=== PATIENT | male | born 1935 | race Caucasian/White ===

== ENCOUNTER → 2017-06-24 11:04 | Outpatient (CLI) | payer MEDICARE, OTHER, SELFPAY ==
[2017-06-24 11:59] LABS: Add Manual Diff / Slide Review NO; Basophils Percent Auto 1.2 % (0-2); Eosinophils Percent Auto 2.5 % (2-4); Hematocrit 39.8 % (41-53); Hemoglobin 13.6 g/dL (13.5-17.5); Lymphocytes Percent Auto 20.5 % (25-40); Mean Corpuscular HGB Conc 34.1 % (30-36); Mean Corpuscular Volume 93.9 fL (80-100); Monocytes Percent Auto 13.2 % (3-14); Neutrophils Absolute Auto 3700 /uL (3000-5900); Neutrophils Percent Auto 62.6 % (50-75); Platelet Count 150 X10^3/uL (150-400); Red Blood Cell Count 4.24 X10^6/uL (4.5-5.9); Red Cell Distribution Width 13.9 % (11.6-14.8); White Blood Cell Count 5.9 X10^3/uL (4.5-11.0)
[2017-06-24 12:11] LABS: Alanine Aminotransferase 45 IU/L (21-72); Albumin 4.2 g/dL (3.5-5.0); Albumin Globulin Ratio 1.2 (1.0-2.8); Alkaline Phosphatase 53 U/L (38-126); Aspartate Aminotransferase 32 IU/L (17-59); BUN Creatinine Ratio 11.7 (6-22); Bilirubin Total 0.8 mg/dL (0.2-1.3); Estimated Glomerular Filt Rate 58.1 mL/min (>60); Globulin 3.4 g/dL (1.7-4.1); Glucose 113 mg/dL (80-110); HEMOLYSIS < 15 (0-50); Potassium 3.9 mmol/L (3.4-5.1); Sodium 139 mmol/L (137-145); Total Protein 7.6 g/dL (6.3-8.2)
[2017-06-25 14:43] LABS: Free Kappa Light Chain 42.3; Free Kappa/ Lambda Ratio 0.94; Free Lambda 44.8
== END ==
PROVIDERS: Internal Medicine Hematology & Oncology; PCP Internal Medicine; Visit Provider Specialist
DX: C90.00 Multiple myeloma not having achieved remission (principal)
CPT/HCPCS: 36415; 80053; 83883; 85025

== ENCOUNTER → 2017-08-05 13:53 | Outpatient (CLI) | payer MEDICARE, OTHER, SELFPAY ==
[2017-07-01 14:59] VITALS: TEMP 36.7
[2017-08-05 14:09] LABS: Add Manual Diff / Slide Review NO; Basophils Percent Auto 1.1 % (0-2); Eosinophils Percent Auto 1.9 % (2-4); Hematocrit 36.9 % (41-53); Hemoglobin 12.6 g/dL (13.5-17.5); Lymphocytes Percent Auto 36.2 % (25-40); Mean Corpuscular HGB Conc 34.1 % (30-36); Mean Corpuscular Hemoglobin 32.6 PG (26-34); Mean Corpuscular Volume 95.5 fL (80-100); Monocytes Percent Auto 11.7 % (3-14); Neutrophils Absolute Auto 1900 /uL (3000-5900); Neutrophils Percent Auto 49.1 % (50-75); Platelet Count 149 X10^3/uL (150-400); Red Blood Cell Count 3.86 X10^6/uL (4.5-5.9); Red Cell Distribution Width 14.6 % (11.6-14.8); White Blood Cell Count 3.8 X10^3/uL (4.5-11.0)
[2017-08-05 14:20] LABS: Alanine Aminotransferase 43 IU/L (21-72); Albumin 3.9 g/dL (3.5-5.0); Albumin Globulin Ratio 1.3 (1.0-2.8); Alkaline Phosphatase 49 U/L (38-126); Aspartate Aminotransferase 24 IU/L (17-59); BUN Creatinine Ratio 14.2 (6-22); Bilirubin Total 0.8 mg/dL (0.2-1.3); Blood Urea Nitrogen 17 mg/dL (9-20); Calcium 8.8 mg/dL (8.4-10.2); Carbon Dioxide 25 mmol/L (22-32); Chloride 107 mmol/L (98-107); Estimated Glomerular Filt Rate 58.1 mL/min (>60); Globulin 3.1 g/dL (1.7-4.1); Glucose 136 mg/dL (80-110); HEMOLYSIS < 15 (0-50); Potassium 3.9 mmol/L (3.4-5.1); Sodium 142 mmol/L (137-145)
[2017-08-07 16:19] LABS: Free Kappa Light Chain 33.1 mg/L (3.3-19.4); Free Lambda 36.8 mg/L (5.7-26.3)
== END ==
PROVIDERS: PCP Internal Medicine; Visit Provider Nurse Practitioner Gerontology
DX: C90.00 Multiple myeloma not having achieved remission (principal)
CPT/HCPCS: 36415; 80053; 83883; 85025

== ENCOUNTER → 2017-09-16 11:13 | Outpatient (CLI) | payer MEDICARE, OTHER, SELFPAY ==
[2017-09-16 11:47] LABS: Add Manual Diff / Slide Review NO; Basophils Percent Auto 1.2 % (0-2); Hematocrit 37.3 % (41-53); Hemoglobin 12.9 g/dL (13.5-17.5); Lymphocytes Percent Auto 24.9 % (25-40); Mean Corpuscular HGB Conc 34.5 % (30-36); Mean Corpuscular Hemoglobin 33.2 PG (26-34); Mean Corpuscular Volume 96.3 fL (80-100); Monocytes Percent Auto 12.9 % (3-14); Neutrophils Absolute Auto 2600 /uL (3000-5900); Platelet Count 145 X10^3/uL (150-400); Red Blood Cell Count 3.88 X10^6/uL (4.5-5.9); Red Cell Distribution Width 13.9 % (11.6-14.8); White Blood Cell Count 4.4 X10^3/uL (4.5-11.0)
[2017-09-16 11:58] LABS: HEMOLYSIS < 15 (0-50)
[2017-09-16 11:59] LABS: Alanine Aminotransferase 38 IU/L (21-72); Albumin 4.1 g/dL (3.5-5.0); Albumin Globulin Ratio 1.4 (1.0-2.8); Alkaline Phosphatase 42 U/L (38-126); Aspartate Aminotransferase 26 IU/L (17-59); BUN Creatinine Ratio 14.2 (6-22); Bilirubin Total 0.9 mg/dL (0.2-1.3); Blood Urea Nitrogen 17 mg/dL (9-20); Calcium 8.6 mg/dL (8.4-10.2); Carbon Dioxide 26 mmol/L (22-32); Chloride 107 mmol/L (98-107); Estimated Glomerular Filt Rate 58.1 mL/min (>60); Globulin 2.9 g/dL (1.7-4.1); Glucose 106 mg/dL (80-110); Sodium 141 mmol/L (137-145)
[2017-09-17 12:23] LABS: Free Kappa/ Lambda Ratio 1.11 (0.26-1.65); Free Lambda 37.9 mg/L (5.7-26.3)
[2017-09-18 15:14] LABS: Albumin 100 %; Protein, Total, 24 hr urine 45 mg/24 h (<150); Protein/ Creatinine Ratio 52 mg/g creat (< OR = 84); Total Volume 500 mL
[2017-09-18 21:34] LABS: Albumin 3.7 g/dL (3.8-4.8); Alpha 1 Globulin 0.3 g/dL (0.2-0.3); Alpha 2 Globulin 0.8 g/dL (0.5-0.9); Beta 1 Globulin 0.5 g/dL (0.4-0.6); Protein, Total 6.8 g/dL (6.1-8.1)
== END ==
PROVIDERS: PCP Internal Medicine; Visit Provider Internal Medicine Hematology & Oncology
DX: C90.00 Multiple myeloma not having achieved remission (principal)
CPT/HCPCS: 36415; 80053; 83883; 84155; 84156; 84165; 84166; 85025; 86335

== ENCOUNTER → 2017-11-10 10:46 | Outpatient (CLI) | payer MEDICARE, OTHER, SELFPAY ==
[2017-11-10 11:21] LABS: Alanine Aminotransferase 40 IU/L (21-72); Albumin 4.1 g/dL (3.5-5.0); Albumin Globulin Ratio 1.3 (1.0-2.8); Alkaline Phosphatase 53 U/L (38-126); Aspartate Aminotransferase 31 IU/L (17-59); BUN Creatinine Ratio 12.5 (6-22); Blood Urea Nitrogen 15 mg/dL (9-20); Calcium 9.4 mg/dL (8.4-10.2); Carbon Dioxide 28 mmol/L (22-32); Chloride 106 mmol/L (98-107); Estimated Glomerular Filt Rate 58.1 mL/min (>60); Globulin 3.2 g/dL (1.7-4.1); Glucose 96 mg/dL (80-110); HEMOLYSIS < 15 (0-50); Sodium 145 mmol/L (137-145); Total Protein 7.3 g/dL (6.3-8.2)
[2017-11-10 11:32] LABS: Add Manual Diff / Slide Review NO; Basophils Percent Auto 1.3 % (0-2); Eosinophils Percent Auto 4.5 % (2-4); Hematocrit 37.8 % (41-53); Lymphocytes Percent Auto 28.2 % (25-40); Mean Corpuscular HGB Conc 34.3 % (30-36); Mean Corpuscular Hemoglobin 32.5 PG (26-34); Mean Corpuscular Volume 94.7 fL (80-100); Monocytes Percent Auto 10.7 % (3-14); Neutrophils Absolute Auto 1800 /uL (3000-5900); Neutrophils Percent Auto 55.3 % (50-75); Platelet Count 151 X10^3/uL (150-400); Red Blood Cell Count 3.99 X10^6/uL (4.5-5.9); Red Cell Distribution Width 13.9 % (11.6-14.8); White Blood Cell Count 3.3 X10^3/uL (4.5-11.0)
[2017-11-12 15:14] LABS: Immunoglobulin A 452 mg/dL (81-463); Immunoglobulin G, Quantitative 1013 mg/dL (694-1618); Immunoglobulin M, Quantitative 57 mg/dL (48-271)
[2017-11-12 15:20] LABS: Free Kappa/ Lambda Ratio 1.02 (0.26-1.65); Free Lambda 37.1 mg/L (5.7-26.3)
[2017-11-13 08:09] LABS: Beta-2-Microglobulin 3.12 mg/L (< 2.52)
== END ==
PROVIDERS: PCP Internal Medicine; Visit Provider Nurse Practitioner Gerontology
DX: C90.00 Multiple myeloma not having achieved remission (principal)
CPT/HCPCS: 36415; 80053; 82232; 82784; 83883; 85025

== ENCOUNTER → 2018-02-05 14:04 | Outpatient (CLI) | payer MEDICARE, OTHER, SELFPAY ==
[2018-02-05 14:21] LABS: Add Manual Diff / Slide Review NO; Basophils Percent Auto 1.5 % (0-2); Eosinophils Percent Auto 3.6 % (2-4); Hematocrit 38.1 % (41-53); Hemoglobin 13.3 g/dL (13.5-17.5); Lymphocytes Percent Auto 29.6 % (25-40); Mean Corpuscular HGB Conc 34.9 % (30-36); Mean Corpuscular Hemoglobin 32.7 PG (26-34); Mean Corpuscular Volume 93.5 fL (80-100); Monocytes Percent Auto 11.1 % (3-14); Neutrophils Absolute Auto 2000 /uL (3000-5900); Neutrophils Percent Auto 54.2 % (50-75); Platelet Count 181 X10^3/uL (150-400); Red Blood Cell Count 4.08 X10^6/uL (4.5-5.9); White Blood Cell Count 3.7 X10^3/uL (4.5-11.0)
[2018-02-05 14:44] LABS: Alanine Aminotransferase 34 IU/L (21-72); Albumin 4.1 g/dL (3.5-5.0); Albumin Globulin Ratio 1.3 (1.0-2.8); Alkaline Phosphatase 55 U/L (38-126); Aspartate Aminotransferase 22 IU/L (17-59); BUN Creatinine Ratio 13.6 (6-22); Bilirubin Total 0.5 mg/dL (0.2-1.3); Blood Urea Nitrogen 15 mg/dL (9-20); Calcium 9.5 mg/dL (8.4-10.2); Carbon Dioxide 26 mmol/L (22-32); Chloride 105 mmol/L (98-107); Estimated Glomerular Filt Rate > 60.0 mL/min (>60); Globulin 3.1 g/dL (1.7-4.1); Glucose 113 mg/dL (80-110); HEMOLYSIS < 15 (0-50); Lactate Dehydrogenase 363 U/L (313-618); Potassium 3.8 mmol/L (3.4-5.1); Sodium 144 mmol/L (137-145); Total Protein 7.2 g/dL (6.3-8.2)
--- NOTE | 2018-02-05 15:07 | PC.NURSE ---
labs stable, MM panel pending, provider visit 02/12
[2018-02-07 14:29] LABS: Beta-2-Microglobulin 3.17 mg/L (< 2.52)
[2018-02-07 14:30] LABS: Immunoglobulin A 455 mg/dL (81-463); Immunoglobulin G, Quantitative 990 mg/dL (694-1618); Immunoglobulin M, Quantitative 68 mg/dL (48-271)
[2018-02-10 14:00] LABS: Free Kappa Light Chain 38.3 mg/L (3.3-19.4); Free Lambda 34.9 mg/L (5.7-26.3)
[2018-02-14 14:14] LABS: Albumin 3.2 g/dL (3.8-4.8); Alpha 1 Globulin 0.3 g/dL (0.2-0.3); Alpha 2 Globulin 0.8 g/dL (0.5-0.9); Beta 1 Globulin 0.4 g/dL (0.4-0.6); Gamma Globulin 0.9 g/dL (0.8-1.7); Protein, Total 6.1 g/dL (6.1-8.1)
== END ==
PROVIDERS: PCP Internal Medicine; Visit Provider Internal Medicine Hematology & Oncology
DX: C90.00 Multiple myeloma not having achieved remission (principal)
CPT/HCPCS: 36415; 80053; 82232; 82784; 83615; 83883; 84155; 84165; 85025

== ENCOUNTER → 2018-11-12 15:57 | Outpatient (CLI) | payer MEDICARE, OTHER, SELFPAY ==
[2018-11-12 16:55] LABS: Add Manual Diff / Slide Review NO; Basophils Absolute Auto 100 /uL (0-100); Basophils Percent Auto 1.1 % (0-2); Eosinophils Absolute Auto 200 /uL (0-450); Eosinophils Percent Auto 3.3 % (2-4); Hematocrit 39.2 % (41-53); Hemoglobin 13.5 g/dL (13.5-17.5); Lymphocytes Absolute Auto 1800 /uL (1100-4500); Mean Corpuscular HGB Conc 34.5 % (30-36); Mean Corpuscular Hemoglobin 33.3 PG (26-34); Mean Corpuscular Volume 96.7 fL (80-100); Monocytes Absolute Auto 800 /uL (0-900); Neutrophils Absolute Auto 2800 /uL (1500-7000); Neutrophils Percent Auto 49.6 % (50-75); Platelet Count 140 X10^3/uL (150-400); Red Blood Cell Count 4.05 X10^6/uL (4.5-5.9); Red Cell Distribution Width 14.1 % (11.6-14.8); White Blood Cell Count 5.6 X10^3/uL (4.5-11.0)
[2018-11-12 17:07] LABS: Alanine Aminotransferase 34 IU/L (21-72); Albumin 4.3 g/dL (3.5-5.0); Albumin Globulin Ratio 1.3 (1.0-2.8); Alkaline Phosphatase 58 U/L (38-126); Aspartate Aminotransferase 27 IU/L (17-59); Bilirubin Total 0.6 mg/dL (0.2-1.3); Blood Urea Nitrogen 22 mg/dL (9-20); Calcium 9.2 mg/dL (8.4-10.2); Carbon Dioxide 24 mmol/L (22-32); Chloride 106 mmol/L (98-107); Cholesterol 121 mg/dL (140-199); Estimated Glomerular Filt Rate > 60.0 mL/min (>60); Globulin 3.4 g/dL (1.7-4.1); Glucose 100 mg/dL (80-110); HDL Cholesterol 48 mg/dL (40-60); HEMOLYSIS < 15 (0-50); Lactate Dehydrogenase 342 U/L (313-618); Potassium 3.8 mmol/L (3.4-5.1); Sodium 141 mmol/L (137-145); Total Protein 7.7 g/dL (6.3-8.2); Triglycerides 377 mg/dL (35-150)
[2018-11-12 17:39] LABS: Thyroid Stimulating Hormone 1.99 uIU/mL (0.47-4.68)
[2018-11-14 15:03] LABS: Immunoglobulin A 516 mg/dL (20-320); Immunoglobulin G, Quantitative 989 mg/dL (600-1540); Immunoglobulin M, Quantitative 61 mg/dL (50-300)
[2018-11-16 12:36] LABS: Albumin 3.7 g/dL (3.8-4.8); Alpha 1 Globulin 0.3 g/dL (0.2-0.3); Beta 1 Globulin 0.4 g/dL (0.4-0.6)
[2018-11-17 12:48] LABS: Beta-2-Microglobulin 2.66 mg/L (< 2.52)
[2018-11-17 14:02] LABS: Free Kappa Light Chain 41.4 mg/L (3.3-19.4); Free Kappa/ Lambda Ratio 1.16 (0.26-1.65); Free Lambda 35.8 mg/L (5.7-26.3)
== END ==
PROVIDERS: Internal Medicine Hematology & Oncology; PCP Internal Medicine; Visit Provider Internal Medicine
DX: E78.00 Pure hypercholesterolemia, unspecified (principal); C90.00 Multiple myeloma not having achieved remission; D12.6 Benign neoplasm of colon, unspecified; N40.0 Benign prostatic hyperplasia without lower urinary tract symptoms; M19.90 Unspecified osteoarthritis, unspecified site; C90.02 Multiple myeloma in relapse; E66.3 Overweight; R73.01 Impaired fasting glucose; G30.9 Alzheimer's disease, unspecified; E03.9 Hypothyroidism, unspecified; E78.2 Mixed hyperlipidemia
CPT/HCPCS: 36415; 80053; 80061; 82232; 82784; 83615; 83883; 84155; 84165; 84443; 85025

== ENCOUNTER → 2019-02-10 13:46 | Outpatient (CLI) | payer MEDICARE, OTHER, SELFPAY ==
[2019-02-10 14:16] LABS: Add Manual Diff / Slide Review NO; Basophils Absolute Auto 0 /uL (0-100); Basophils Percent Auto 0.9 % (0-2); Eosinophils Absolute Auto 200 /uL (0-450); Eosinophils Percent Auto 4.1 % (2-4); Hematocrit 39.1 % (41-53); Hemoglobin 13.3 g/dL (13.5-17.5); Lymphocytes Absolute Auto 900 /uL (1100-4500); Lymphocytes Percent Auto 22.9 % (25-40); Mean Corpuscular Hemoglobin 32.9 PG (26-34); Mean Corpuscular Volume 96.7 fL (80-100); Monocytes Absolute Auto 600 /uL (0-900); Monocytes Percent Auto 14.2 % (3-14); Neutrophils Absolute Auto 2400 /uL (1500-7000); Neutrophils Percent Auto 57.9 % (50-75); Platelet Count 119 X10^3/uL (150-400); Red Blood Cell Count 4.05 X10^6/uL (4.5-5.9); Red Cell Distribution Width 13.9 % (11.6-14.8); White Blood Cell Count 4.1 X10^3/uL (4.5-11.0)
[2019-02-10 15:18] LABS: Alanine Aminotransferase 26 IU/L (<50); Albumin Globulin Ratio 1.4 (1.0-2.8); Alkaline Phosphatase 61 U/L (38-126); Aspartate Aminotransferase 23 IU/L (17-59); BUN Creatinine Ratio 12.3 (6-22); Bilirubin Total 0.9 mg/dL (0.2-1.3); Blood Urea Nitrogen 16 mg/dL (9-20); Calcium 9.3 mg/dL (8.4-10.2); Carbon Dioxide 26 mmol/L (22-32); Chloride 106 mmol/L (98-107); Estimated Glomerular Filt Rate 52.9 mL/min (>60); Globulin 2.9 g/dL (1.7-4.1); Glucose 110 mg/dL (80-110); HEMOLYSIS < 15 (0-50); Lactate Dehydrogenase 338 U/L (313-618); Sodium 141 mmol/L (137-145); Total Protein 6.9 g/dL (6.3-8.2)
[2019-02-13 10:42] LABS: Beta-2-Microglobulin 2.52 mg/L (< 2.52)
[2019-02-13 12:42] LABS: Free Lambda 37.5 mg/L (5.7-26.3)
[2019-02-13 13:26] LABS: Immunoglobulin A 514 mg/dL (70-320); Immunoglobulin G, Quantitative 955 mg/dL (600-1540); Immunoglobulin M, Quantitative 61 mg/dL (50-300)
[2019-02-13 20:50] LABS: Albumin 3.6 g/dL (3.8-4.8); Alpha 1 Globulin 0.3 g/dL (0.2-0.3); Alpha 2 Globulin 0.8 g/dL (0.5-0.9); Beta 1 Globulin 0.5 g/dL (0.4-0.6); Gamma Globulin 0.9 g/dL (0.8-1.7); Protein, Total 6.6 g/dL (6.1-8.1)
== END ==
PROVIDERS: PCP Internal Medicine; Visit Provider Internal Medicine Hematology & Oncology
DX: C90.00 Multiple myeloma not having achieved remission (principal)
CPT/HCPCS: 36415; 80053; 82232; 82784; 83615; 83883; 84155; 84165; 85025

== ENCOUNTER → 2019-07-20 10:22 | Outpatient (CLI) | payer MEDICARE, OTHER, SELFPAY | PROVIDERS: PCP Internal Medicine; Referring Provider Internal Medicine; Visit Provider Internal Medicine Hematology & Oncology | DX: C90.00 Multiple myeloma not having achieved remission (principal) | CPT/HCPCS: 36415; 80053; 82232; 83615; 85025 ==

== ENCOUNTER 2020-08-10 12:19 | Emergency (ER) | payer MEDICARE, OTHER, SELFPAY ==
[2020-08-10 12:25] VITALS: BP 110/78; PULSE 109; RESP 18; TEMP 36.6; O2SAT 100; BMI 25.4
--- NOTE | 2020-08-10 14:47 | ED.NECK ---
HPI - Neck Pain/Injury General Chief Complaint: Neck Pain/Injury Stated Complaint: horrific pain in neck and head Time Seen by Provider: 08/10/20 14:47 Source: patient and family () Mode of arrival: Ambulatory Limitations: no limitations History of Present Illness HPI Narrative: This is an 85-year-old male comes emergency department with complaint of pain in his neck and head. Patient's family states that he had similar symptoms about a year ago which self resolved. 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 Patient and his states that they never got the x-ray images they were encouraged to obtain. Patient started having symptoms on Friday and or worsening through Friday. They have tried ibuprofen with some help but symptoms continue to return. This morning he was quite painful and had difficulty even getting out of bed. Patient describes the pain as his neck insert of coming around the neck. He complained to his that he had headache but denies any at this time. Patient has not had any numbness, tingling or weakness. He has not had any vision changes, no photophobia, no difficulty speech. He denies any chest pain or pressure. No shortness of breath. No nausea or vomiting. The patient is not any bowel or bladder incontinence. He has been able to ambulate. Patient is on medication for dyslipidemia, quetiapine for mood disorder, lenalidomide for multiple myeloma and has a history of dementia. Patient is allergic to codeine, Namenda and donepezil. He has not had any recent trauma or injuries that he or his recall. His states that he does have some dementia. Related Data Home Medications Medication Instructions Recorded Confirmed MULTIVITAMIN (#THERAPEUTIC 1 cap PO Q DAY #0 06/25/12 02/21/20 VITAMINS) atorvastatin [Lipitor] 10 mg PO HS #0 06/25/12 02/21/20 latanoprost [Xalatan] 1 drp OPHTH HS #0 06/25/12 02/21/20 cyanocobalamin (vitamin B-12) 1,000 mcg PO Q DAY #0 11/14/16 02/21/20 levothyroxine [Synthroid] 25 mcg PO DAILY 08/12/17 02/21/20 quetiapine 25 mg PO DAILY 07/22/19 02/21/20 Previous Rx's Medication Instructions Recorded lenalidomide 5 mg PO DAILY #21 cap 07/31/20 diazepam [Valium] 5 mg PO BEDTIME PRN #7 tab 08/10/20 ibuprofen 600 mg PO QID PRN #20 tab 08/10/20 lidocaine 1 applic TOPICAL TID PRN #15 g 08/10/20 Allergies Allergy/AdvReac Type Severity Reaction Status Date / Time codeine AdvReac Unknown Hives Verified 08/10/20 12:27 Review of Systems Review of Systems ROS Unobtainable: All systems reviewed & are unremarkable except as noted in HPI and below Patient History Medical History (Updated 08/10/20 @ 15:02 by Jenn Ferrara DO) Dyslipidemia Social History Smoking Status: Unknown if ever smoked Smoking Status: Unknown if ever smoked alcohol intake frequency: holidays/special occasions only Substance Use Type: does not use Exam Narrative Exam Narrative: GEN: well nourished, well appearing male, alert and oriented self and location, patient appears to be in mild distress. Patient able to answer some questions but does seem confused occassionally. HEENT: Atraumatic, pupils are equal round reactive to light, extraocular movements are intact, nares are clear, no nystagmus, no photophobia, TMs are clear with no fluid, there is no conjunctival pallor. Throat is clear without any exudates, erythema, tonsillar enlargement or uvular deviation, no facial droop HEART: Regular rate and rhythm without murmur, clicks, rubs. No carotid bruits, pulses are equal in upper extremities LUNGS:Lungs clear to auscultation, no wheezes, rales, crackles, chest moves symmetrically ABD:bowel sounds normal, soft, non-tender, no guarding, rebound, rigidity, no masses noted, no hepatosplenomegaly :No CVA tenderness BACK: No cervical, thoracic or lumbar vertebral point tenderness. Patient has normal range of motion. MSCL: Non-tender, no muscle atrophy, muscles strength 5/5 upper and lower extremities, full range of motion, sensation intact in upper lower extremities. NEURO:CN 2-12 intact, sensation normal SKIN: No rash or erythema or skin changes noted, no ecchymosis. Initial Vital Signs Initial Vital Signs: Vital Signs Temperature 97.8 F 08/10/20 12:25 Pulse Rate 109 H 08/10/20 12:25 Respiratory Rate 18 08/10/20 12:25 Blood Pressure 110/78 08/10/20 12:25 Pulse Oximetry 100 08/10/20 12:25 Course Orders Ordered: ED Orders 08/10/20 14:56 CT cervical spine wo con Stat CT head/brain wo con Stat Discontinued Medications Diazepam (Diazepam 5 Mg Tablet) 5 mg PO NOW ONE Stop: 08/10/20 15:05 Last Admin: 08/10/20 15:10 Dose: 5 mg Documented by: KADE Ketorolac Tromethamine (Ketorolac 30 Mg/Ml Vial) 30 mg IM NOW ONE Stop: 08/10/20 15:05 Last Admin: 08/10/20 15:51 Dose: 30 mg Documented by: KADE Vital Signs Vital signs: Vital Signs - 8 hr 08/10/20 12:25 08/10/20 15:13 08/10/20 15:14 Temperature 97.8 F Pulse Rate 109 H 77 Respiratory Rate 18 Blood Pressure 110/78 132/75 Pulse Oximetry 100 100 100 08/10/20 15:15 08/10/20 16:13 Temperature Pulse Rate 72 74 Respiratory Rate 18 18 Blood Pressure 132/75 130/70 Pulse Oximetry 98 98 MDM - Neck Pain/Injury Imaging Data CT scan - head: Radiologist's Impression: [address] [id number] Scan ReportSigned Patient: Wesley Colunga DMR#: [id number]: 7Acct:[id number]/Sex: 85 / MDate of Service: 08/10/20Loc: EDAccession Number: [id number] Procedure: CT head/brain wo con Ordering Provider: Jenn Ferrara D.O. PROCEDURE: CT HEAD/BRAIN WO CON INDICATIONS: neck pain, intermittent, hx multiple myeloma TECHNIQUE: Noncontrast 4.5 mm thick angled axial sections acquired from the foramen magnum to the vertex, with coronal and sagittal reformats. For radiation dose reduction, the following was used: automated exposure control, adjustment of mA and/or kV according to patient size. COMPARISON: None. FINDINGS: Image quality: Excellent. CSF spaces: Basal cisterns are patent. No extra-axial fluid collections. The ventricles are symmetric in size and shape. Brain: No acute intracranial hemorrhage. No findings of mass effect or midline shift. Mild global cerebral volume loss and chronic microvascular ischemic change. Midline structures are normal in configuration. Skull and face: No suspicious lytic or blastic osseous lesion within the calvarium or skull base. Sinuses: Visualized sinuses and mastoids are clear. IMPRESSION: No acute intracranial abnormality. No CT evidence of myeloma in the skull base or calvarium. Dictated by: Lei Parham M.D. on 08/10/2020 at 15:35 Approved by: Lei Parham M.D. on 08/10/2020 at 15:35 CT - cervical spine: Radiologist's Impression: [address] [id number] Scan ReportSigned Patient: Wesley Colunga DMR#: [id number]: [id number]:[id number]/Sex: 85 / MDate of Service: 08/10/20Loc: EDAccession Number: [id number] Procedure: CT cervical spine wo con Ordering Provider: Jenn Ferrara D.O. PROCEDURE: CT CERVICAL SPINE WO CON INDICATIONS: neck pain, intermittent, hx multiple myeloma TECHNIQUE: Noncontrast 3 mm thick sections acquired from the skull base to the T4 level. Sagittal and coronal reformats were then constructed. For radiation dose reduction, the following was used: automated exposure control, adjustment of mA and/or kV according to patient size. COMPARISON: [facility], CT, HEAD WITHOUT CONTRAST, 07/25/2014, 8:10. FINDINGS: Image quality: Excellent. Bones: Extensive degenerative change. There is no fracture. Facet joints are congruent with no evidence of subluxation or dislocation. No suspicious lytic or blastic osseous lesion identified. Visualized superior ribs are intact. Soft tissues: Prevertebral soft tissues are normal in thickness. No paravertebral hematomas. No apical pneumothoraces. IMPRESSION: No CT evidence of acute traumatic cervical spine injury. No CT evidence of lytic lesion in the cervical spine. Dictated by: Lei Parham M.D. on 08/10/2020 at 15:35 Approved by: Lei Parham M.D. on 08/10/2020 at 15:38 [facility] Narrative Medical decision making narrative: This is a pleasant 85-year-old male who has had cervical neck pain in the past trace complaint is of some headache as well as C-spine pain. He does have some dementia but no known recent trauma or injuries patient was told he likely has arthritis but they never had imaging after his prior episode. Patient's head CT and C-spine are negative, these are obtained as patient has history of multiple myeloma and with his potential for possible unwitnessed fall and patient forgetting as he has dementia. Patient does not have any other red flag symptoms here in the department. His extensive arthritic changes consistent with his exam here in the department as well. Discharge Plan Departure Patient Disposition: Home Clinical Impression: Neck pain Activity Restrictions/Additional Instructions: Follow up with your physician in the next week for recheck. Call for an appointment. Your imaging today shows extensive arthritic changes with no fractures or lytic changes. You may take ibuprofen up to 600mg every 6 hours as needed. You may wish to take a Pepcid or similar medication once daily while taking this medicine. You may use Lidocaine cream to the affected area every 8 hours as needed. Make sure to wipe up for wash off any cream or lotions prior to applying the lidocaine cream or other topical pain medications. You may use muscle relaxer prior to sleep or if the areas particularly painful every 8 hours as needed. This medication can make you sleepy do not drive, perform hazardous activities or make any major decisions while taking this medicine. Prescription to [facility] in [facility] Please return for fevers greater 100.4 F, new or so rapidly worsening confusion, altered mental status, rapidly worsening neck or back pain, new numbness, tingling or weakness, difficulty using extremities, ambulating, loss of bowel or bladder control, slurred speech, persistent vomiting or other new or concerning symptoms. Prescriptions: New ibuprofen 600 mg tablet 600 mg PO QID PRN (Reason: pain) Qty: 20 RF: 0 lidocaine 4 % cream 1 applic topical TID PRN (Reason: pain) Qty: 15 RF: 0 diazepam [Valium] 5 mg tablet 5 mg PO BEDTIME PRN (Reason: muscle spasm) Qty: 7 RF: 0 No Action latanoprost [Xalatan] 0.005 % drops 1 drp OPHTH HS Qty: 0 RF: 0 atorvastatin [Lipitor] 10 MG tablet 10 mg PO HS Qty: 0 RF: 0 MULTIVITAMIN (#THERAPEUTIC VITAMINS) 1 cap PO Q DAY Qty: 0 RF: 0 cyanocobalamin (vitamin B-12) 1,000 MCG tablet extended release 1,000 mcg PO Q DAY Qty: 0 RF: 0 levothyroxine [Synthroid] 25 mcg Tablet 25 mcg PO DAILY RF: 0 quetiapine 25 mg Tablet 25 mg PO DAILY RF: 0 lenalidomide 5 mg Capsule 5 mg PO DAILY Qty: 21 RF: 0 Referrals: Dmitriy Yu MD [Primary Care Provider] -
--- NOTE | 2020-08-10 14:56 | DI.CT.S_ITS ---
PROCEDURE: CT CERVICAL SPINE WO CON INDICATIONS: neck pain, intermittent, hx multiple myeloma TECHNIQUE: Noncontrast 3 mm thick sections acquired from the skull base to the T4 level. Sagittal and coronal reformats were then constructed. For radiation dose reduction, the following was used: automated exposure control, adjustment of mA and/or kV according to patient size. COMPARISON: [facility], CT, HEAD WITHOUT CONTRAST, 07/25/2014, 8:10. FINDINGS: Image quality: Excellent. Bones: Extensive degenerative change. There is no fracture. Facet joints are congruent with no evidence of subluxation or dislocation. No suspicious lytic or blastic osseous lesion identified. Visualized superior ribs are intact. Soft tissues: Prevertebral soft tissues are normal in thickness. No paravertebral hematomas. No apical pneumothoraces. IMPRESSION: No CT evidence of acute traumatic cervical spine injury. No CT evidence of lytic lesion in the cervical spine. Dictated by: Lei Parham M.D. on 08/10/2020 at 15:35 Approved by: Lei Parham M.D. on 08/10/2020 at 15:38
--- NOTE | 2020-08-10 14:56 | DI.CT.S_ITS ---
PROCEDURE: CT HEAD/BRAIN WO CON INDICATIONS: neck pain, intermittent, hx multiple myeloma TECHNIQUE: Noncontrast 4.5 mm thick angled axial sections acquired from the foramen magnum to the vertex, with coronal and sagittal reformats. For radiation dose reduction, the following was used: automated exposure control, adjustment of mA and/or kV according to patient size. COMPARISON: None. FINDINGS: Image quality: Excellent. CSF spaces: Basal cisterns are patent. No extra-axial fluid collections. The ventricles are symmetric in size and shape. Brain: No acute intracranial hemorrhage. No findings of mass effect or midline shift. Mild global cerebral volume loss and chronic microvascular ischemic change. Midline structures are normal in configuration. Skull and face: No suspicious lytic or blastic osseous lesion within the calvarium or skull base. Sinuses: Visualized sinuses and mastoids are clear. IMPRESSION: No acute intracranial abnormality. No CT evidence of myeloma in the skull base or calvarium. Dictated by: Lei Parham M.D. on 08/10/2020 at 15:35 Approved by: Lei Parham M.D. on 08/10/2020 at 15:35
[2020-08-10] MEDS: diazePAM 5 MG TABLET PO (15:10)
[2020-08-10 15:13] VITALS: PULSE 77; O2SAT 100
[2020-08-10 15:14] VITALS: BP 132/75; O2SAT 100
[2020-08-10 15:15] VITALS: BP 132/75; PULSE 72; RESP 18; O2SAT 98
[2020-08-10] MEDS: KETOROLAC 30 MG/ML VIAL IM (15:51)
[2020-08-10 16:13] VITALS: BP 130/70; PULSE 74; RESP 18; O2SAT 98
== END 2020-08-10 16:20 | disposition home or self-care (01) ==
PROVIDERS: Emergency Provider Emergency Medicine; PCP Internal Medicine
DX: M54.2 Cervicalgia (principal); R51.9 Headache, unspecified; F03.90 Unspecified dementia, unspecified severity, without behavioral disturbance, psychotic disturbance, mood disturbance, and anxiety
CPT/HCPCS: 70450; 72125; 96372; 99284; J1885

== ENCOUNTER → 2020-11-06 12:55 | Outpatient (CLI) | payer MEDICARE, OTHER, SELFPAY ==
--- NOTE | 2020-11-06 12:56 | DI.US.S_ITS ---
PROCEDURE: US ABDOMEN COMPLETE INDICATIONS: TRANSAMINITIS TECHNIQUE: Real-time scanning was performed of the abdominal and retroperitoneal organs, with image documentation. COMPARISON: None. FINDINGS: Liver: Liver is diffusely increased in echogenicity. No focal hepatic abnormalities identified. Normal hepatic size. Gallbladder: No gallstones identified. Normal gallbladder wall. No pericholecystic fluid. Negative sonographic Olivas sign. Biliary ducts: Intrahepatic bile ducts are non-dilated. Extrahepatic bile duct not well seen Pancreas: Not well seen. Spleen: Spleen is normal in size and homogeneous in echotexture. Hypoechoic mass seen adjacent to the splenic hilum measuring 1.4 x 1.6 x 1.6 cm. Kidneys: Kidneys are normal in size and echotexture. Right kidney measures 9.7 cm long; left kidney measures 10 cm long. No hydronephrosis or nephrolithiasis. No solid masses. Left inferior renal cyst measuring 2.4 cm. Aorta: Visualized aorta is normal in caliber at less than 3 cm. Iliacs: Proximal common iliac arteries are normal in caliber at less than 2.5 cm. IVC: Intrahepatic inferior vena cava is patent. Miscellaneous: No free abdominal fluid. IMPRESSION: 1. Increased hepatic echogenicity noted possibly related to hepatic steatosis but other sources of hepatocellular disease cannot be excluded. Recommend clinical correlation. 2. Hypoechoic mass seen at the level of the splenic hilum which may represent a complex cyst; although splenic mass cannot entirely be excluded. If indicated, CT could be performed for further assessment. Dictated by: Giancarlo PORRAS Interpreted: Lei Parham MD on 11/06/2020 at 16:55 Transcribed by: CLOTILDE on 11/06/2020 at 16:57 Approved by: Lei Parham M.D. on 11/06/2020 at 17:19
== END ==
PROVIDERS: PCP Internal Medicine; Referring Provider Internal Medicine Hematology & Oncology; Visit Provider Internal Medicine Hematology & Oncology
DX: C90.00 Multiple myeloma not having achieved remission (principal); R74.01 Elevation of levels of liver transaminase levels; R16.1 Splenomegaly, not elsewhere classified
CPT/HCPCS: 76700

== ENCOUNTER → 2021-09-20 14:00 | Outpatient (CLI) | payer MEDICARE, SELFPAY ==
--- NOTE | 2021-09-20 14:01 | DI.RAD.S_ITS ---
PROCEDURE: XR THORACIC SPINE 3V INDICATIONS: thoracolumbar back pain TECHNIQUE: 3 views of the thoracic spine were acquired. COMPARISON: [facility], [place], [place] PET CT FUSION WHOLE BODY, 11/15/2020, 8:45. [facility], [place], XR LUMBAR SPINE 2-3V, 09/20/2021, 14:10. FINDINGS: Bones: No fractures or dislocations. No suspicious bony lesions. 12 pairs of ribs are noted, and appear intact where visualized. Moderate multilevel disc height loss with endplate sclerosis and spurring. Soft tissues: No paravertebral stripe thickening. Chronic pancreatic calcifications. IMPRESSION: Moderate multilevel disc degeneration. Dictated by: Giancarlo PORRAS Interpreted: Dione Zabala MD on 09/20/2021 at 15:04 Transcribed by: SUDEEP on 09/20/2021 at 15:04 Approved by: Dione Zabala M.D. on 09/20/2021 at 15:20
--- NOTE | 2021-09-20 14:01 | DI.RAD.S_ITS ---
PROCEDURE: XR LUMBAR SPINE 2-3V INDICATIONS: thoracolumbar back pain TECHNIQUE: 3 views of the lumbar spine were acquired. COMPARISON: [facility], [place], [place] PET CT FUSION WHOLE BODY, 11/15/2020, 8:45. [facility], [place], US ABDOMEN COMPLETE, 11/06/2020, 13:13. [facility], [place], XR THORACIC SPINE 3V, 09/20/2021, 14:10. FINDINGS: Bones: 5 [id number] vertebrae are present. 2 mm retrolisthesis from the L1-L2 through the L4-L5 levels. Multilevel disc height loss with endplate sclerosis and spurring, severe at the L5-S1 level. Mild L4-L5 and moderate L5-S1 facet joint arthropathy. No vertebral body compression fractures. No suspicious bony lesions. Soft tissues: Overlying bowel gas pattern is normal. No suspicious soft tissue calcifications. Chronic pancreatic calcifications redemonstrated. IMPRESSION: 1. Multilevel spondylosis, most notably at the L5-S1 level. Dictated by: Giancarlo PORRAS Interpreted: Dione Zabala MD on 09/20/2021 at 15:01 Transcribed by: SUDEEP on 09/20/2021 at 15:03 Approved by: Dione Zabala M.D. on 09/20/2021 at 15:20
== END ==
PROVIDERS: PCP Internal Medicine; Referring Provider Internal Medicine; Visit Provider Internal Medicine
DX: M47.817 Spondylosis without myelopathy or radiculopathy, lumbosacral region (principal); M54.50 Low back pain, unspecified; M51.34 Other intervertebral disc degeneration, thoracic region
CPT/HCPCS: 72072; 72100

== ENCOUNTER → 2021-11-07 15:44 | Outpatient (CLI) | payer MEDICARE, SELFPAY ==
[2021-11-07 16:12] LABS: Add Manual Diff / Slide Review NO; Basophils Absolute Auto 0 /uL (0-100); Basophils Percent Auto 1.4 % (0-2); Eosinophils Absolute Auto 100 /uL (0-450); Eosinophils Percent Auto 4.9 % (2-4); Hematocrit 30.7 % (41-53); Hemoglobin 10.5 g/dL (13.5-17.5); Lymphocytes Absolute Auto 700 /uL (1100-4500); Lymphocytes Percent Auto 32.4 % (25-40); Mean Corpuscular HGB Conc 34.3 % (30-36); Mean Corpuscular Hemoglobin 34.3 PG (26-34); Mean Corpuscular Volume 99.9 fL (80-100); Monocytes Absolute Auto 500 /uL (0-900); Monocytes Percent Auto 22.8 % (3-14); Neutrophils Absolute Auto 900 /uL (1500-7000); Neutrophils Percent Auto 38.5 % (50-75); Platelet Count 144 X10^3/uL (150-400); Red Blood Cell Count 3.08 X10^6/uL (4.5-5.9); Red Cell Distribution Width 13.7 % (11.6-14.8); White Blood Cell Count 2.3 X10^3/uL (4.5-11.0)
[2021-11-07 16:45] LABS: Alanine Aminotransferase 65 IU/L (<50); Albumin 3.3 g/dL (3.5-5.0); Albumin Globulin Ratio 1.1 (1.0-2.8); Alkaline Phosphatase 53 U/L (38-126); Aspartate Aminotransferase 32 IU/L (17-59); BUN Creatinine Ratio 11.8 (6-22); Bilirubin Total 0.4 mg/dL (0.2-1.3); Blood Urea Nitrogen 13 mg/dL (9-20); Calcium 8.1 mg/dL (8.4-10.2); Carbon Dioxide 22 mmol/L (22-32); Chloride 111 mmol/L (98-107); Estimated Glomerular Filt Rate > 60 mL/min (>60); Glucose 128 mg/dL (80-110); HEMOLYSIS < 15 (0-50); Potassium 3.3 mmol/L (3.4-5.1); Sodium 141 mmol/L (137-145); Total Protein 6.3 g/dL (6.3-8.2)
== END ==
PROVIDERS: PCP Internal Medicine; Referring Provider Internal Medicine Hematology & Oncology; Visit Provider Internal Medicine Hematology & Oncology
DX: C90.00 Multiple myeloma not having achieved remission (principal)
CPT/HCPCS: 36415; 80053; 85025

== ENCOUNTER → 2022-01-25 14:46 | Outpatient (CLI) | payer MEDICARE, SELFPAY ==
[2022-01-25 15:39] LABS: Alanine Aminotransferase 126 IU/L (<50); Albumin 3.2 g/dL (3.5-5.0); Albumin Globulin Ratio 1.1 (1.0-2.8); Alkaline Phosphatase 78 U/L (38-126); Aspartate Aminotransferase 74 IU/L (17-59); BUN Creatinine Ratio 9.6 (6-22); Bilirubin Total 0.3 mg/dL (0.2-1.3); Blood Urea Nitrogen 9 mg/dL (9-20); Calcium 7.7 mg/dL (8.4-10.2); Carbon Dioxide 25 mmol/L (22-32); Chloride 107 mmol/L (98-107); Estimated Glomerular Filt Rate > 60 mL/min (>60); Globulin 2.8 g/dL (1.7-4.1); Glucose 173 mg/dL (80-110); HEMOLYSIS < 15 (0-50); Potassium 3.6 mmol/L (3.4-5.1); Sodium 139 mmol/L (137-145)
== END ==
PROVIDERS: PCP Internal Medicine; Referring Provider Nurse Practitioner Family; Visit Provider Nurse Practitioner Family
DX: I51.9 Heart disease, unspecified (principal)
CPT/HCPCS: 36415; 80053

== ENCOUNTER → 2022-09-17 15:48 | Outpatient (CLI) | payer MEDICARE, SELFPAY ==
[2022-09-17 17:08] LABS: Add Manual Diff / Slide Review NO; Basophils Absolute Auto 0 /uL (0-100); Basophils Percent Auto 0.3 % (0-2); Eosinophils Absolute Auto 200 /uL (0-450); Eosinophils Percent Auto 3.9 % (2-4); Hematocrit 32.7 % (41-53); Hemoglobin 11.2 g/dL (13.5-17.5); Lymphocytes Absolute Auto 1100 /uL (1100-4500); Lymphocytes Percent Auto 27.1 % (25-40); Mean Corpuscular HGB Conc 34.2 % (30-36); Mean Corpuscular Hemoglobin 34.2 PG (26-34); Mean Corpuscular Volume 99.9 fL (80-100); Monocytes Absolute Auto 600 /uL (0-900); Monocytes Percent Auto 13.6 % (3-14); Neutrophils Absolute Auto 2300 /uL (1500-7000); Neutrophils Percent Auto 55.1 % (50-75); Platelet Count 141 X10^3/uL (150-400); Red Blood Cell Count 3.27 X10^6/uL (4.5-5.9); Red Cell Distribution Width 13.9 % (11.6-14.8); White Blood Cell Count 4.1 X10^3/uL (4.5-11.0)
[2022-09-17 17:19] LABS: Alanine Aminotransferase 25 IU/L (<50); Albumin 3.6 g/dL (3.5-5.0); Albumin Globulin Ratio 1.1 (1.0-2.8); Alkaline Phosphatase 65 U/L (38-126); Aspartate Aminotransferase 24 IU/L (17-59); Bilirubin Total 0.3 mg/dL (0.2-1.3); Blood Urea Nitrogen 15 mg/dL (9-20); Calcium 8.3 mg/dL (8.4-10.2); Carbon Dioxide 21 mmol/L (22-32); Chloride 109 mmol/L (98-107); Estimated Glomerular Filt Rate > 60 mL/min (>60); Globulin 3.3 g/dL (1.7-4.1); Glucose 113 mg/dL (80-110); HEMOLYSIS < 15 (0-50); Lactate Dehydrogenase 154 U/L (120-246); Potassium 3.6 mmol/L (3.4-5.1); Sodium 137 mmol/L (137-145); Total Protein 6.9 g/dL (6.3-8.2)
[2022-09-18 22:13] LABS: Labcorp Hemoglobin (Hb) A1c 5.5 % (4.8-5.6)
[2022-09-19 18:26] LABS: Free Kappa Lt Chains, Serum 13.1 mg/L (3.3-19.4); Free Lambda Lt Chains,Serum 34.3 mg/L (5.7-26.3)
[2022-09-20 14:36] LABS: Immunoglobulin A, Serum 60 mg/dL (61-437); Immunoglobulin G,Serum 1565 mg/dL (603-1613); Immunoglobulin M, Serum 25 mg/dL (15-143)
[2022-09-20 15:31] LABS: Beta-2-Microglobulin 2.9 mg/L (0.6-2.4)
[2022-09-20 18:31] LABS: Albumin 3.1 g/dL (2.9-4.4); Alpha-1-Globulin 0.2 g/dL (0.0-0.4); Alpha-2-Globulin 0.7 g/dL (0.4-1.0); Gamma Globulin 1.4 g/dL (0.4-1.8); Globulin Total 3.1 g/dL (2.2-3.9); Protein, Total 6.2 g/dL (6.0-8.5)
== END ==
PROVIDERS: PCP Internal Medicine; Referring Provider Internal Medicine Hematology & Oncology; Visit Provider Internal Medicine Hematology & Oncology
DX: C90.00 Multiple myeloma not having achieved remission (principal)
CPT/HCPCS: 36415; 80053; 82232; 82784; 83036; 83615; 83883; 84155; 84165; 85025; 86334

== ENCOUNTER → 2023-12-03 10:02 | Outpatient (CLI) | payer MEDICARE, SELFPAY ==
[2023-12-03 10:47] LABS: Hematocrit 30.8 % (41-53); Hemoglobin 10.5 g/dL (13.5-17.5); Mean Corpuscular HGB Conc 34.3 % (30-36); Mean Corpuscular Hemoglobin 35.3 PG (26-34); Platelet Count 185 X10^3/uL (150-400); Red Blood Cell Count 2.99 X10^6/uL (4.5-5.9); Red Cell Distribution Width 13.8 % (11.6-14.8); White Blood Cell Count 5.6 X10^3/uL (4.5-11.0)
[2023-12-03 11:01] LABS: Hemoglobin A1C% w Est Avg Glu 5.2 % (4.0-6.0)
[2023-12-03 11:06] LABS: Alanine Aminotransferase 22 IU/L (<50); Albumin 3.2 g/dL (3.5-5.0); Albumin Globulin Ratio 0.9 (1.0-2.8); Alkaline Phosphatase 56 U/L (38-126); Aspartate Aminotransferase 21 IU/L (17-59); BUN Creatinine Ratio 13.8 (6-22); Bilirubin Total 0.4 mg/dL (0.2-1.3); Blood Urea Nitrogen 16 mg/dL (9-20); Calcium 8.8 mg/dL (8.4-10.2); Carbon Dioxide 19 mmol/L (22-32); Chloride 114 mmol/L (98-107); Estimated Glomerular Filt Rate > 60 mL/min (>60); Globulin 3.4 g/dL (1.7-4.1); Glucose 96 mg/dL (80-110); HEMOLYSIS < 15 (0-50); Potassium 3.6 mmol/L (3.4-5.1); Sodium 138 mmol/L (137-145); Total Protein 6.6 g/dL (6.3-8.2)
[2023-12-03 11:37] LABS: TSH w/ Reflex to FT4 2.95 uIU/mL (0.47-4.68)
== END ==
PROVIDERS: PCP Internal Medicine; Referring Provider Internal Medicine; Visit Provider Internal Medicine
DX: E11.69 Type 2 diabetes mellitus with other specified complication (principal); E78.5 Hyperlipidemia, unspecified; E03.9 Hypothyroidism, unspecified; C90.00 Multiple myeloma not having achieved remission; R32 Unspecified urinary incontinence; R15.9 Full incontinence of feces; K62.5 Hemorrhage of anus and rectum
CPT/HCPCS: 36415; 80053; 83036; 84443; 85027